=== PATIENT | female | born 1940 | race Caucasian/White ===

== ENCOUNTER → 2017-08-01 | Outpatient (CLI) | payer OTHER, MEDICARE | LOC: CIMAGING 09:56 | PROVIDERS: ATTEND Family Medicine | DX: Z12.31 Encounter for screening mammogram for malignant neoplasm of breast (principal); Z80.3 Family history of malignant neoplasm of breast ==

== ENCOUNTER → 2018-02-20 | Outpatient (CLI) | payer OTHER, MEDICARE | LOC: CIMAGING 09:42 | PROVIDERS: ATTEND Physician Assistant | DX: R10.13 Epigastric pain (principal); Z90.6 Acquired absence of other parts of urinary tract | CPT/HCPCS: 36415-PO; 76705-PO; 82784-90; 83516-90 ==